=== PATIENT | male | born 1990 | race African-American/Black ===

== ENCOUNTER 2018-01-18 11:33 | Emergency (ER) | payer OTHER ==
[~2018-01-18] VITALS: Ht 177.8 cm; Wt 81.6 kg
--- NOTE | 2018-01-18 11:33 | NUR ---
[id number] + PD, PT WAS FOUND SITTING ON TOP OF THE ROOFTOP. RT ORTHODOX ABRASION NOTED. PT IS REFUSING TO GIVE INFORMATIONS. PT IS CRYING. NAD VSS RR EVEN AND UNLABORED.
[2018-01-18 12:00] LABS: BASOPHILS % (AUTO) 0.3 % (0.0-2.0); EOSINOPHILS % (AUTO) 0.4 % (0.0-6.0); HEMATOCRIT 44 % (39-51); HEMOGLOBIN 15.6 g/dL (13.5-17.5); LYMPHOCYTES # (AUTO) 1.6 /CMM (0.8-4.8); LYMPHOCYTES % (AUTO) 23.4 % (20.0-44.0); MEAN CORPUSCULAR HGB CONC 36 g/dl (31.0-36.0); MEAN CORPUSCULAR VOLUME 89 fL (80-96); MONOCYTES # (AUTO) 0.5 /CMM (0.1-1.30); MONOCYTES % (AUTO) 7.6 % (2.0-12.0); NEUTROPHILS # (AUTO) 4.7 /CMM (1.8-8.9); NEUTROPHILS % (AUTO) 68.3 % (43.0-81.0); PLATELET COUNT (AUTO) 187 /CMM (150-450); RED BLOOD CELL COUNT(AUTO) 4.92 MIL/uL (4.5-6.0); WHITE BLOOD COUNT (AUTO) 6.8 K/uL (4.3-11.0)
[2018-01-18 12:08] LABS: CALCIUM, SERUM 9.3 mg/dL (8.5-10.1); CARBON DIOXIDE 25 mmol/L (21-32); CHLORIDE 106 mmol/L (98-107); GLUCOSE 95 mg/dL (74-106); POTASSIUM 3.1 mmol/L (3.5-5.1); SODIUM SERUM 142 mmol/L (136-145); UREA NITROGEN, BLOOD 12 mg/dL (7-18)
[2018-01-18 12:15] LABS: ALANINE AMINOTRANSFERASE 21 U/L (12-78); ALBUMIN 4.1 g/dL (3.4-5.0); ALCOHOL, BLOOD < 3 mg/dL (0-0); ALKALINE PHOSPHATASE 70 U/L (46-116); ASPARTATE AMINOTRANSFERASE 16 U/L (15-37); BILIRUBIN,DIRECT 0.3 mg/dL (0.0-0.2); BILIRUBIN,TOTAL 1.5 mg/dL (0.2-1.0); TOTAL PROTEIN, SERUM 7.4 g/dL (6.4-8.2)
[2018-01-18 12:16] LABS: SALICYLATE < 2.8 mg/dL (2.8-20.0)
--- NOTE | 2018-01-18 12:40 | NUR ---
SITTER AT BS.
--- NOTE | 2018-01-18 12:51 | NUR ---
CALLED [facility] AND HE GAVE AN ETA OF 1 HOUR.
[2018-01-18] MEDS ORDERED: OLANZAPINE 5 MG TABLET ONE (14:01)
[2018-01-18] MEDS: OLANZAPINE 5 MG TABLET PO ONE ×2 (14:04→14:15)
--- NOTE | 2018-01-18 15:00 | NUR ---
Patient is resting comfortably in bed with eyes closed. Easily aroused. VSS
--- NOTE | 2018-01-18 21:08 | NUR ---
CALLED [employer] [facility] ON THE STATUS OF THIS PATIENT AND HE INFORMED ME THAT THERE WAS STILL NO ACCEPTING FACILITY. HE WILL UPDATE US ON ANY NEW INFORMATION.
--- NOTE | 2018-01-18 21:37 | NUR ---
SITTER REMAINS AT BS. PT SLEEPING COMFORTABLY IN BED. WILL MONITOR.
--- NOTE | 2018-01-18 23:30 | NUR ---
RECEIVED REPORT FROM NURSE [place]. CHONG AT BEDSIDE. DENIES ANY MEDICAL C/O AT THIS TIME. RESP EVEN AND UNLABORED.
--- NOTE | 2018-01-19 00:07 | NUR ---
GIVEN SANDWICH AND ORANGE JUICE. NAD NOTED.
--- NOTE | 2018-01-19 01:26 | NUR ---
TALKING TO SITTER. NAD NOTED. RESP EVEN AND UNLABORED.
--- NOTE | 2018-01-19 03:13 | NUR ---
RESTING QITH EYES CLOSED BUT EASILY AROUSABLE. NO DISTRESS NOTED. SITTER WITH PT.
--- NOTE | 2018-01-19 05:02 | NUR ---
Patient is resting in bed with eyes closed. Easily aroused. VSS
--- NOTE | 2018-01-19 08:38 | NUR ---
call back from [facility], found a bed at [facility], faxed hold to [phone] as requested
--- NOTE | 2018-01-19 09:37 | NUR ---
plate take out worker contacted [facility] and spoke to David in intake who informed they have no beds available. MARÍA called [facility] dept. and spoke to Liv who informed they have beds available and to send clinicals. MARÍA faxed clinicals to intake at [facility] . MARÍA followed up to confirm fax received and was informed they have 6 intakes prior to this pt. and will follow up with SW in a few hours. MARÍA updated ED CRN Gener. Addendum: 01/19/18 at 1110 by KEEGAN DANIEL MARÍA contacted [facility] and spoke to Maci in intake who informed they have no beds available. MARÍA contacted [facility] and spoke to Brian who informed they have no beds available. MARÍA contacted [facility] again to follow up regarding bed availability and was informed by Genie, they have beds and to call back around 1PM. SW to follow up.
[2018-01-19] MEDS ORDERED: OLANZAPINE 5 MG/TAB.RAPDIS PO SCH (10:00)
[2018-01-19] MEDS ORDERED: OLANZAPINE 5 MG TABLET ONE (11:46)
--- NOTE | 2018-01-19 12:00 | NUR ---
PT PROVIDED WITH FOOD TRAY REQUESTED. SITTER REMAINS AT BS. PT NOTED CALM AND COOPERATIVE. VSS. WILL MONITOR.
--- NOTE | 2018-01-19 12:44 | NUR ---
NO BEDS AVAILABLE AT [facility], PER KEEGAN MANAGEMENT TECH.
--- NOTE | 2018-01-19 12:45 | NUR ---
MARÍA contacted [facility] to follow up regarding bed availability. MARÍA spoke to Mackenzie who informed they had beds available earlier, however, they had to admit patients from their ER. SW updated Mathieu in ED.
--- NOTE | 2018-01-19 14:24 | NUR ---
JAYMIE RN FOR [facility] CALLED, ACCEPTED BY DR VAZQUEZ,REPORT TO BE CALLED AT 2030 TO [phone] AND CHARGE NURSE YUDY RN WILL GIVE THE BED
--- NOTE | 2018-01-19 16:00 | NUR ---
Patient is resting comfortably in bed with eyes closed. Easily aroused. VSS
--- NOTE | 2018-01-19 18:40 | NUR ---
FOOD TRAY PROVIDED TO PT. SCHWARZ REMAINS AT BS.
--- NOTE | 2018-01-19 19:00 | NUR ---
MELISSA SCHWARZ AT BS.
[2018-01-19 21:00] VITALS: BP 120/71
--- NOTE | 2018-01-19 21:13 | NUR ---
REPORT GIVEN TO FRANCINE GARSIA OF [facility].
--- NOTE | 2018-01-19 21:15 | NUR ---
CALLED [facility] FOR TRANSPORT, ETA OF [phone] WAS GIVEN. TRIP#[id number]
--- NOTE | 2018-01-19 21:54 | NUR ---
REPORT GIVEN TO [facility] STAFF FOR TRANSFER TO [facility].
== END 2018-01-19 22:46 ==
LOC: EDBD 11:37 → ER 11:37
DX: R45.851 Suicidal ideations (principal); F20.9 Schizophrenia, unspecified; F31.9 Bipolar disorder, unspecified
CPT/HCPCS: 36415; 70450; 80048; 80076; 80305; 80329; 85025; 99285; A4606; G0480; Z7610